=== PATIENT | male | born 1995 | race Caucasian/White ===

== ENCOUNTER 2019-06-29 16:10 | Emergency (ER) | payer MEDICAID, OTHER ==
[~2019-06-29] VITALS: Ht 162.6 cm; Wt 83.9 kg
[2019-06-29 16:41] VITALS: BP 139/91
--- NOTE | 2019-06-29 19:58 | NUR ---
24 Y/O MALE BIB SELF FOR GENERALIZED WEAKNESS S/P FALL FROM SKATING EARLIER TODAY. PATIENT STATES THAT HE PASSED OUT AND BUMPED HIS HEAD. NO BUMP NOTED PAIN IS AN 8/10; STABBING PAIN. A/OX3 TO PERSON, PLACE, AND DATE. PERRLA +3. FOLLOWS COMMANDS. BREATHING UNLABORED AND SYMMETRICAL. 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 ERMD MADE AWARE OF STATUS. SIDE RAILSX1. PLACED ON MONITOR. VSS. PMH:DENIES RX:DENIES NKDA
--- NOTE | 2019-06-29 19:58 | NUR ---
pt ambulated to bed 12
--- NOTE | 2019-06-29 21:03 | NUR ---
PATIENT TAKEN TO CT.
[2019-06-29 21:37] LABS: BASOPHILS % (AUTO) 0.3 % (0.0-2.0); EOSINOPHILS # (AUTO) 0.2 K/uL (0-0.4); EOSINOPHILS % (AUTO) 1.8 % (0.0-4.0); HEMATOCRIT 44.2 % (36-52); HEMOGLOBIN 14.8 g/dL (12.0-18.0); LYMPHOCYTES # (AUTO) 2.4 K/uL (2.0-11.5); MEAN CORPUSCULAR HEMOGLOBIN 31 pg (27-31); MEAN CORPUSCULAR HGB CONC 34 g/dL (33-37); MEAN CORPUSCULAR VOLUME 91.6 fL (80-94); MONOCYTES # (AUTO) 0.9 K/uL (0.8-1.0); MONOCYTES % (AUTO) 8.1 % (1.7-9.3); NEUTROPHILS # (AUTO) 7.4 K/uL (1.8-7.7); NEUTROPHILS % (AUTO) 67.8 % (42.2-75.2); PLATELET COUNT (AUTO) 241 K/uL (140-450); RED BLOOD CELL COUNT(AUTO) 4.82 MIL/uL (4.20-6.10); RED CELL DISTRIBUTION WIDTH 12.9 % (11.6-13.7); WHITE BLOOD COUNT (AUTO) 10.9 K/uL (4.8-10.8)
--- NOTE | 2019-06-29 21:42 | NUR ---
EKG PERFORMED AT BEDSIDE
[2019-06-29 22:01] LABS: PROTHROMBIN TIME 10.4 secs (10.8-13.4)
[2019-06-29 22:04] LABS: ALBUMIN 4.4 g/dL (3.4-5.0); ANION GAP 14.3 (8-16); CARBON DIOXIDE 28.9 mmol/L (21-32); POTASSIUM 4.2 mmol/L (3.5-5.1); TOTAL BILIRUBIN 0.3 mg/dL (0.0-1.0)
[2019-06-29 22:05] LABS: CHOL/HDL RATIO 3.7 (1-4.5)
--- NOTE | 2019-06-29 22:10 | NUR ---
URINE COLLECTED AND SENT TO LAB
[2019-06-29 22:26] LABS: BARBITURATE, URINE NEG. ng/ml (NEG <=200); BENZODIAZEPINE, URINE NEG. ng/mL (NEG <=200); CANNABINOID, URINE POS. ng/mL (NEG <=50); COCAINE, URINE POS. ng/mL (NEG <=300); OPIATE, URINE NEG. ng/mL (NEG <=2000); PHENCYCLIDINE SCREEN,URINE NEG. ng/mL (NEG <=25)
[2019-06-29 23:23] VITALS: BP 139/91
--- NOTE | 2019-06-29 23:23 | NUR ---
Patient discharged with v/s stable. Written and verbal after care instructions given and explained. Patient verbalized understanding. Ambulatory with steady gait. All questions addressed prior to discharge. Advised to follow up with PMD. PT WAS GIVEN A SUBSTANCE ABUSE PACKET FOR NEAR BY RESOURCES. DR. ALAN D/C PT
== END 2019-06-29 23:23 | disposition home or self-care (01) ==
LOC: MED 16:10
DX: F14.10 Cocaine abuse, uncomplicated (principal); F12.10 Cannabis abuse, uncomplicated; Z71.6 Tobacco abuse counseling
CPT/HCPCS: 36415; 71045; 80053; 80305; 83880; 84484; 85025; 85610; 85730; 93005; 99284

== ENCOUNTER 2019-08-05 18:07 | Emergency (ER) | payer OTHER ==
[~2019-08-05] VITALS: Ht 162.6 cm; Wt 88.5 kg
--- NOTE | 2019-08-05 18:09 | NUR ---
PT TO ER BED 12
[2019-08-05 18:14] VITALS: BP 124/60
--- NOTE | 2019-08-05 18:29 | NUR ---
C/O STERNAL PAIN X3 DAYS. PT STATES PAIN IS CONTINUOUS AND WORST WHEN HE MOVES. BED IN LOW POSITION, SIDE RAIL UP X1. WILL CONTINUE TO MONITOR.
--- NOTE | 2019-08-05 18:59 | NUR ---
EKG DONE AT BEDSIDE.
--- NOTE | 2019-08-05 19:20 | NUR ---
REPORT GIVEN TO RN, СВЕТЛАНА AT BEDSIDE.
[2019-08-05 19:22] VITALS: BP 108/56
== END 2019-08-05 19:22 | disposition home or self-care (01) ==
LOC: MED 18:07
DX: S20.219A Contusion of unspecified front wall of thorax, initial encounter (principal); R11.10 Vomiting, unspecified; X50.0XXA Overexertion from strenuous movement or load, initial encounter; Y93.89 Activity, other specified; Y92.89 Other specified places as the place of occurrence of the external cause; Y99.0 Civilian activity done for income or pay
CPT/HCPCS: 71045; 71120; 93005; 99284; Q0092

== ENCOUNTER 2019-08-24 14:25 | Emergency (ER) | payer OTHER ==
[~2019-08-24] VITALS: Ht 162.6 cm; Wt 84.8 kg
[2019-08-24 14:34] VITALS: BP 148/99
--- NOTE | 2019-08-24 14:41 | NUR ---
24 y/o m presents to ER c/o Sternum Pain. Pt seen at [facility] x 3 weeks ago for same issue, dx with bruised sternum. Pt seen at [facility] x2 weeks ago for same issue, dx with sternum fracture. Pt hurt sternum while lifting weights at the gym. Pt here for Medication Refill Hydrocodone/Acetaminophen 5/325mg. Per pt he has only 1 tablet left. Allergies: NKA Med hx: none
[2019-08-24 14:59] VITALS: BP 148/99
--- NOTE | 2019-08-24 14:59 | NUR ---
Patient discharged with v/s stable. Written and verbal after care instructions given and explained. Patient alert, oriented and verbalized understanding of instructions. Ambulatory with steady gait. All questions addressed prior to discharge. ID band removed. Patient advised to follow up with PMD. Rx of [place] 5mg was given. Patient educated on indication of medication including possible reaction and side effects. Opportunity to ask questions provided and answered.
== END 2019-08-24 14:59 | disposition home or self-care (01) ==
LOC: MED 14:25
DX: S20.219A Contusion of unspecified front wall of thorax, initial encounter (principal); X58.XXXA Exposure to other specified factors, initial encounter; Y93.89 Activity, other specified; Y92.89 Other specified places as the place of occurrence of the external cause; Y99.0 Civilian activity done for income or pay
CPT/HCPCS: 99283